=== PATIENT | male | born 1995 | race Caucasian/White ===

== ENCOUNTER 2018-10-19 20:46 | Emergency (ER) | payer BC ==
[2018-10-19] MEDS ORDERED: Fluorescein 0.6 MG Ophth Strip EYERT ONE (21:35)
--- NOTE | 2018-10-19 21:52 | EDM.PDOC ---
ED HPI GENERAL MEDICAL PROBLEM - General Chief Complaint: ENT Problem Stated Complaint: METAL IN EYE Time Seen by Provider: 10/19/18 20:57 Source of Information: Reports: Patient History Limitations: Reports: No Limitations - History of Present Illness INITIAL COMMENTS - FREE TEXT/NARRATIVE: 23-year-old male presents for evaluation and treatment of a metal foreign body in his left eye. This occurred around 0630 this morning. Reports he was at work. States he was grinding. He was not wearing eye protection. He is denying any pain, blurry vision or double vision. Reports foreign body sensation to the left eye. States he attempted to rinse out the eye but continues to have foreign body sensation. He does not wear glasses or contacts. No history of any eye problems. - Related Data Allergies Allergy/AdvReac Type Severity Reaction Status Date / Time No Known Allergies Allergy Verified 10/19/18 20:59 Home Meds: Home Meds Erythromycin Base [Erythromycin 0.5% Ophth Oint] 1 applic EYELF BID #1 tube 01/01 [Rx] Past Medical History - Past Surgical History GI Surgical History: Reports: Appendectomy Social & Family History - Tobacco Use Smoking Status *Q: Never Smoker - Caffeine Use Caffeine Use: Reports: Soda - Recreational Drug Use Recreational Drug Use: No ED ROS ENT - Review of Systems Review Of Systems: See Below HEENT: Denies: Eye Discharge, Eye Pain, Glasses, Vision Change ED EXAM, ENT - Physical Exam Exam: See Below Exam Limited By: No Limitations General Appearance: Alert, WD/WN, No Apparent Distress Eye Exam: Right Eye: Other (left eye examined with the slit lamp ans fluorscein ; foreign body removed after proparacaine instilled with a cotton swabcorneal abrasion appreciated to the area, no rust ring; visual acuity 20/20 left, right and both), Left Eye: Corneal Abrasion (7 o'clock ), Foreign Body (black speck at 7 o'clock, no rust ring), Bilateral Eye: EOMI, PERRL Ears: Normal External Exam Nose: Normal Inspection Mouth/Throat: Normal Inspection Respiratory/Chest: No Respiratory Distress Course - Vital Signs Last Recorded V/S: Last Vital Signs Temp 98.2 F 10/19/18 20:57 Pulse 82 10/19/18 20:57 Resp 18 10/19/18 20:57 BP 152/93 H 10/19/18 20:57 Pulse Ox 99 10/19/18 20:57 - Orders/Labs/Meds Orders: Active Orders 24 hr Category Date Time Status Slit Lamp to Bedside [RC] ASDIRECTED Care 10/19/18 21:35 Ordered Vision Test [RC] ASDIRECTED Care 10/19/18 21:35 Ordered Meds: Medications Discontinued Medications Generic Name Dose Route Start Last Admin Trade Name Pat PRN Reason Stop Dose Admin Fluorescein Sodium 0.6 mg 10/19/18 21:35 Ful-Jenn EYERT 10/19/18 21:36 ONETIME ONE - Re-Assessments/Exams Free Text/Narrative Re-Assessment/Exam: 10/19/18 21:46 Proparacaine instilled in the left eye this achieved adequate anesthesia. the presumed metal jean claude was removed easily with a cotton swab. The eye was then examined with a slit lamp and fluorescein. Corneal abrasion appreciated to the 7 o'clock position where the speck was. No rust ring appreciated. Will place on erythromycin ointment and recommend follow-up with an eye doctor. Discharge instructions as documented. Departure - Departure Time of Disposition: 21:47 Disposition: Home, Self-Care 01 Condition: Good Clinical Impression: Foreign body in eye, Corneal abrasion - Discharge Information *PRESCRIPTION DRUG MONITORING PROGRAM REVIEWED*: No *COPY OF PRESCRIPTION DRUG MONITORING REPORT IN PATIENT [place]: No Prescriptions: Erythromycin Base [Erythromycin 0.5% Ophth Oint] 1 applic EYELF BID #1 tube Referrals: PCP,None [Primary Care Provider] - Forms: ED Department Discharge Additional Instructions: Apply the erythromycin ointment 3 times a day for a week. Pull the lower lid down and a apply 1 cm ribbon to the lid and blink. Follow-up with an eye doctor later this week to ensure that you're not having any complications from the metal foreign body in your eye. may take [id number] Tylenol or Motrin as needed for pain relief. Please return to the ER if your symptoms change or worsen. - My Orders Last 24 Hours: My Active Orders 10/19/18 21:35 Slit Lamp to Bedside [RC] ASDIRECTED Vision Test [RC] ASDIRECTED - Assessment/Plan Last 24 Hours: My Active Orders 10/19/18 21:35 Slit Lamp to Bedside [RC] ASDIRECTED Vision Test [RC] ASDIRECTED
== END 2018-10-19 22:04 | disposition home or self-care (01) ==
LOC: JD.ED 20:46
DX: T15.02XA Foreign body in cornea, left eye, initial encounter (principal); Y99.0 Civilian activity done for income or pay; X58.XXXA Exposure to other specified factors, initial encounter
CPT/HCPCS: 65205; 65210; 65222; 99282; 99283-25

== ENCOUNTER 2021-02-21 20:17 | Emergency (ER) | payer BC ==
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
[2021-02-21] MEDS ORDERED: Acetaminophen/HYDROcodone 325-5 MG Tab PO ONE (22:13)
--- NOTE | 2021-02-22 07:43 | CT ---
Head CT Technique: Multiple axial sections through the brain were obtained. Intravenous contrast was not utilized. Reconstructed coronal and sagittal images were obtained. Comparison: No prior intracranial imaging is available. Findings: Ventricles along with basal cisterns and sulci over the convexities are within normal limits for the patient's age. No abnormal parenchymal densities are seen. No evidence of intracranial hemorrhage is seen. No midline shift or mass-effect is seen. Slight descent of the cerebellar tonsils are seen below the foramen magnum by about 4-5 mm. This is believed to represent a normal variant. No evidence of intracranial hemorrhage is seen. No midline shift or mass-effect is seen. Bone window settings were reviewed which show the visualized mastoid sinuses and visualized paranasal sinuses to appear clear. No acute calvarial abnormality is appreciated. Impression: 1. Slight descent of the cerebellar tonsils below the foramen magnum felt to be a normal variant. 2. No acute intracranial abnormality is appreciated. Diagnostic code #2 I agree with preliminary report from [facility], finalized on 02/21/21, 10:11 PM CDT, code 1
== END 2021-02-21 22:35 | disposition home or self-care (01) ==
LOC: JD.ED 20:17
DX: S06.0X1A Concussion with loss of consciousness of 30 minutes or less, initial encounter (principal); S30.1XXA Contusion of abdominal wall, initial encounter; S30.0XXA Contusion of lower back and pelvis, initial encounter; M70.61 Trochanteric bursitis, right hip; V86.99XA Unspecified occupant of other special all-terrain or other off-road motor vehicle injured in nontraffic accident, initial encounter
CPT/HCPCS: 70450; 99284; A9270